=== PATIENT | female | born 1960 | race African-American/Black ===

== ENCOUNTER 2019-04-20 18:43 | Emergency (ER) | payer SELFPAY ==
[~2019-04-20] VITALS: Ht 157.5 cm; Wt 71.0 kg
[2019-04-21 00:45] VITALS: BP 145/95
[2019-04-21] MEDS: AMOXICILLIN 500 MG CAPSULE PO ONE (00:52)
== END 2019-04-21 00:54 | disposition home or self-care (01) ==
LOC: ER 18:43
DX: H66.92 Otitis media, unspecified, left ear (principal); E11.9 Type 2 diabetes mellitus without complications; I10 Essential (primary) hypertension; F17.200 Nicotine dependence, unspecified, uncomplicated; Z90.49 Acquired absence of other specified parts of digestive tract; Z59.0 Homelessness
CPT/HCPCS: 99283

== ENCOUNTER 2019-06-30 16:05 | Inpatient (IN) | payer MEDICAID, OTHER ==
[~2019-06-30] VITALS: Ht 157.5 cm; Wt 74.4 kg
[2019-06-30] MEDS ORDERED: ACETAMINOPHEN 325MG TABLET PO STA (16:38)
[2019-06-30] MEDS ORDERED: SODIUM CHLORIDE 0.9% 1000ML BAG (SEPSIS BOLUS) IV ONE (16:45)
[2019-06-30 17:03] LABS: CHLORIDE 97 mEq/L (98-107)
[2019-06-30 17:04] LABS: HEMATOCRIT. 34.5 % (36.0-48.0); HEMOGLOBIN. 11.6 g/dL (12.0-16.0); MEAN CORPUSCULAR VOLUME 95.5 fL (81.0-99.0); PLATELET 134 x1000/uL (130-400); RED BLOOD CELL COUNT 3.61 mill/uL (4.2-5.4); RED CELL DISTRIBUTION WIDTH 20.4 % (11.6-14.6)
[2019-06-30 17:08] LABS: ETHANOL BLOOD < 10 mg/dL
[2019-06-30] MEDS ORDERED: LORAZEPAM 2MG/ML CPJ IV ONE (17:30)
[2019-06-30 17:42] LABS: PLATELET ESTIMATE NORMAL
[2019-06-30] MEDS ORDERED: PIPERACILLIN/TAZ 3.375G PREMIX 50 ML IV ONE (17:45)
[2019-06-30] MEDS ORDERED: VANCOMYCIN 1 G PREMIX 200 ML IV ONE (17:45)
[2019-06-30] MEDS ORDERED: POTASSIUM CHLORIDE 20MEQ TABLET SR PO ONE (18:15)
[2019-06-30 18:28] LABS: CLARITY URINE TURBID (CLEAR); COLOR URINE ORANGE (YELLOW); KETONES URINE NEGATIVE (NEGATIVE); LEUKOCYTE ESTERASE URINE 1+ (NEGATIVE); NITRITE URINE POSITIVE (NEGATIVE); OCCULT BLOOD URINE NEGATIVE (NEGATIVE); PH URINE 5.5 (4.5-8.0); PROTEIN URINE 2+ (NEGATIVE); SPECIFIC GRAVITY URINE 1.029 (1.005-1.030)
[2019-06-30 18:41] LABS: *AMPHETAMINES SCREEN URINE NEGATIVE (NEGATIVE); *BARBITURATES SCREEN URINE NEGATIVE (NEGATIVE); *BENZODIAZEPINES SCREEN URINE NEGATIVE (NEGATIVE); *COCAINE SCREEN URINE NEGATIVE (NEGATIVE)
[2019-06-30 18:42] LABS: CANNABINOID URINE SCREEN NEGATIVE (NEGATIVE); METHADONE URINE SCREEN NEGATIVE (NEGATIVE); OPIATES URINE SCREEN NEGATIVE (NEGATIVE); PHENCYCLIDINE URINE SCREEN NEGATIVE (NEGATIVE)
[2019-06-30 21:00] VITALS: BP 127/63
[2019-06-30 22:00] VITALS: BP 127/63
[2019-06-30] MEDS ORDERED: DEXTROSE 50% WATER 50ML SYRINGE IV PRN (23:15)
[2019-07-01] VITALS (11 sets, daily range): BP systolic 93–144; BP diastolic 55–75
[2019-07-01] MEDS: BLOOD SUGAR DIAGNOSTIC STRIP TEST SCH ×4 (06:38→21:00)
[2019-07-01] MEDS ORDERED: INFLUENZA VIRUS VACCINE(AFLURIA) 0.5ML SYR IM ONE (08:00)
[2019-07-01] MEDS ORDERED: ACETAMINOPHEN 325MG TABLET PO PRN (08:00)
[2019-07-01] MEDS ORDERED: METFORMIN HCL 500MG TABLET PO SCH (08:00)
[2019-07-01] MEDS ORDERED: PNEUMOCOCCAL 23-VAL P-SAC VAC 0.5 ML IM ONE (08:00)
[2019-07-01 08:10] LABS: BASOPHILS % 0.5 % (0.0-2.0); EOSINOPHILS % 0.1 % (0.0-5.0); HEMATOCRIT. 30.8 % (36.0-48.0); HEMOGLOBIN. 10.4 g/dL (12.0-16.0); LYMPHOCYTES % 9.3 % (20.0-50.0); MEAN CORPUSCULAR HEMOGLOBIN 32.1 pg (28.0-32.0); MEAN PLATELET VOLUME 9.4 fl (7.4-10.4); MONOCYTES % 8.8 % (2.0-8.0); NEUTROPHILS % 81.3 % (40.0-76.0); PLATELET 97 x1000/uL (130-400); RED BLOOD CELL COUNT 3.24 mill/uL (4.2-5.4); RED CELL DISTRIBUTION WIDTH 20.3 % (11.6-14.6)
[2019-07-01] MEDS: INSULIN LISPRO 100 UNITS/ML SUBCUT SCH ×4 (08:23→22:10)
[2019-07-01 08:30] LABS: CHLORIDE 103 mEq/L (98-107)
[2019-07-01] MEDS: ASPIRIN 325MG TABLET PO SCH (08:52)
[2019-07-01] MEDS: HYDROCODONE/ACETAMINOPHEN 5/325MG TABLET PO PRN ×2 (08:52→17:12)
[2019-07-01] MEDS: LISINOPRIL 20MG TABLET PO SCH (08:55)
[2019-07-01] MEDS ORDERED: POTASSIUM-SODIUM PHOSPHATE POWDER PACKET PO ONE (09:30)
[2019-07-01] MEDS ORDERED: POTASSIUM CHLORIDE 20MEQ TABLET SR PO NR (09:35)
[2019-07-01] MEDS ORDERED: DILTIAZEM HCL 60MG TABLET PO NR (10:00)
[2019-07-01] MEDS: METRONIDAZOLE 500 MG PREMIX 100 ML IV SCH ×2 (10:23→17:20)
[2019-07-01] MEDS: LEVOFLOXACIN 500MG PREMIX 100 ML IV SCH (10:23)
[2019-07-01] MEDS ORDERED: ONDANSETRON HCL 4MG/2ML INJ IV PRN (16:45)
[2019-07-01] MEDS: DILTIAZEM HCL 60MG TABLET PO SCH ×3 (17:11→21:59)
[2019-07-01 20:24] LABS: HEPATITIS B SURFACE ANTIGEN NEGATIVE
[2019-07-01 20:54] LABS: HEPATITIS A AB IGM NEGATIVE (NEGATIVE)
[2019-07-01] MEDS ORDERED: ATORVASTATIN CALCIUM 40MG TABLET PO SCH (21:00)
[2019-07-01 21:57] LABS: HEMATOCRIT. 30.8 % (36.0-48.0); HEMOGLOBIN. 10.6 g/dL (12.0-16.0); MEAN CORPUSCULAR HEMOGLOBIN 32.6 pg (28.0-32.0); MEAN CORPUSCULAR VOLUME 95.4 fL (81.0-99.0); MEAN PLATELET VOLUME 8.8 fl (7.4-10.4); PLATELET 84 x1000/uL (130-400); RED BLOOD CELL COUNT 3.23 mill/uL (4.2-5.4)
[2019-07-01] MEDS: INSULIN GLARGINE UD 100 UNITS/ML SYR SUBCUT SCH (22:12)
[2019-07-01 23:29] LABS: PLATELET ESTIMATE SLIGHTLY DECREASED
[2019-07-02] VITALS (13 sets, daily range): BP systolic 94–137; BP diastolic 49–92
[2019-07-02] MEDS: METRONIDAZOLE 500 MG PREMIX 100 ML IV SCH ×3 (01:42→17:11)
[2019-07-02] MEDS: DILTIAZEM HCL 60MG TABLET PO SCH ×3 (05:31→22:00)
[2019-07-02 07:34] LABS: CHLORIDE 102 mEq/L (98-107)
[2019-07-02] MEDS: BLOOD SUGAR DIAGNOSTIC STRIP TEST SCH ×4 (07:36→21:00)
[2019-07-02 07:41] LABS: HEMATOCRIT. 31.7 % (36.0-48.0); HEMOGLOBIN. 10.9 g/dL (12.0-16.0); MEAN CORPUSCULAR HEMOGLOBIN 32.8 pg (28.0-32.0); MEAN CORPUSCULAR VOLUME 95.5 fL (81.0-99.0); MEAN PLATELET VOLUME 8.9 fl (7.4-10.4); PLATELET 89 x1000/uL (130-400); RED BLOOD CELL COUNT 3.32 mill/uL (4.2-5.4); RED CELL DISTRIBUTION WIDTH 20.7 % (11.6-14.6)
[2019-07-02] MEDS: INSULIN LISPRO 100 UNITS/ML SUBCUT SCH ×4 (08:00→21:00)
[2019-07-02] MEDS: LEVOFLOXACIN 500MG PREMIX 100 ML IV SCH (08:48)
[2019-07-02] MEDS: ASPIRIN 325MG TABLET PO SCH (08:48)
[2019-07-02] MEDS: LISINOPRIL 20MG TABLET PO SCH (08:49)
[2019-07-02] MEDS ORDERED: POTASSIUM CHLORIDE 20MEQ/PACKET PO NR (10:00)
[2019-07-02] MEDS: INSULIN GLARGINE UD 100 UNITS/ML SYR SUBCUT SCH ×2 (10:18→22:00)
[2019-07-02] MEDS: MAGNESIUM OXIDE 400MG TABLET PO SCH ×2 (10:21→17:11)
[2019-07-02] MEDS ORDERED: MAGNESIUM 2 G PREMIX 50 ML IV NR (11:00)
[2019-07-02] MEDS: HYDROCODONE/ACETAMINOPHEN 5/325MG TABLET PO PRN (17:13)
[2019-07-02] MEDS: CEFTRIAXONE 2 G in DEXTROSE 5% WATER 50 ML IV SCH (18:24)
[2019-07-03] VITALS (20 sets, daily range): BP systolic 101–137; BP diastolic 56–80
[2019-07-03] MEDS: METRONIDAZOLE 500 MG PREMIX 100 ML IV SCH ×3 (02:14→17:09)
[2019-07-03 05:40] LABS: PLATELET ESTIMATE DECREASED
[2019-07-03] MEDS: DILTIAZEM HCL 60MG TABLET PO SCH (05:45)
[2019-07-03 06:38] LABS: HEMATOCRIT. 31.3 % (36.0-48.0); HEMOGLOBIN. 10.5 g/dL (12.0-16.0); MEAN CORPUSCULAR HEMOGLOBIN 32.1 pg (28.0-32.0); MEAN CORPUSCULAR VOLUME 95.4 fL (81.0-99.0); MEAN PLATELET VOLUME 9.1 fl (7.4-10.4); PLATELET 98 x1000/uL (130-400); RED BLOOD CELL COUNT 3.28 mill/uL (4.2-5.4); RED CELL DISTRIBUTION WIDTH 21.5 % (11.6-14.6)
[2019-07-03] MEDS: BLOOD SUGAR DIAGNOSTIC STRIP TEST SCH ×4 (07:30→21:00)
[2019-07-03 07:49] LABS: CHLORIDE 103 mEq/L (98-107)
[2019-07-03] MEDS: INSULIN LISPRO 100 UNITS/ML SUBCUT SCH ×4 (08:00→21:00)
[2019-07-03] MEDS ORDERED: INFLUENZA VIRUS VACCINE(AFLURIA) 0.5ML SYR IM ONE (08:30)
[2019-07-03] MEDS ORDERED: PNEUMOCOCCAL 23-VAL P-SAC VAC 0.5 ML IM ONE (08:30)
[2019-07-03] MEDS: ASPIRIN 325MG TABLET PO SCH (09:00)
[2019-07-03] MEDS: MAGNESIUM OXIDE 400MG TABLET PO SCH ×2 (09:00→17:08)
[2019-07-03] MEDS: LISINOPRIL 20MG TABLET PO SCH (09:00)
[2019-07-03 09:11] LABS: PLATELET ESTIMATE SLIGHTLY DECREASED
[2019-07-03] MEDS: INSULIN GLARGINE UD 100 UNITS/ML SYR SUBCUT SCH ×2 (10:00→22:35)
[2019-07-03] MEDS: LEVOFLOXACIN 500MG PREMIX 100 ML IV SCH (10:34)
[2019-07-03 12:43] LABS: INR 1.7; PROTHROMBIN TIME 17.3 sec (9.6-11.0)
[2019-07-03] MEDS: DILTIAZEM HCL 30MG TABLET PO SCH ×3 (13:04→23:50)
[2019-07-03] MEDS ORDERED: DILT120C88 MT (14:29)
[2019-07-03] MEDS ORDERED: LEVO500T2 MT (14:29)
[2019-07-03] MEDS ORDERED: METR500T PO (14:29)
[2019-07-03] MEDS: PHYTONADIONE 10MG/ML AMP SUBCUT SCH (14:30)
[2019-07-03] MEDS: CEFTRIAXONE 2 G in DEXTROSE 5% WATER 50 ML IV SCH (17:09)
[2019-07-04] VITALS (16 sets, daily range): BP systolic 90–138; BP diastolic 45–93
[2019-07-04] MEDS: METRONIDAZOLE 500 MG PREMIX 100 ML IV SCH ×3 (02:00→17:36)
[2019-07-04] MEDS: DILTIAZEM HCL 30MG TABLET PO SCH ×4 (06:00→21:21)
[2019-07-04] MEDS: BLOOD SUGAR DIAGNOSTIC STRIP TEST SCH ×4 (07:30→21:12)
[2019-07-04] MEDS: INSULIN LISPRO 100 UNITS/ML SUBCUT SCH ×4 (08:00→21:16)
[2019-07-04] MEDS: MAGNESIUM OXIDE 400MG TABLET PO SCH ×2 (08:26→16:54)
[2019-07-04] MEDS: LISINOPRIL 5MG TABLET PO SCH (08:26)
[2019-07-04] MEDS: PHYTONADIONE 10MG/ML AMP SUBCUT SCH (09:00)
[2019-07-04] MEDS: INSULIN GLARGINE UD 100 UNITS/ML SYR SUBCUT SCH ×2 (09:33→21:16)
[2019-07-04 11:57] LABS: HEMATOCRIT. 30.3 % (36.0-48.0); HEMOGLOBIN. 10.3 g/dL (12.0-16.0); MEAN CORPUSCULAR HEMOGLOBIN 32.4 pg (28.0-32.0); MEAN CORPUSCULAR VOLUME 95.6 fL (81.0-99.0); MEAN PLATELET VOLUME 9.4 fl (7.4-10.4); PLATELET 98 x1000/uL (130-400); RED BLOOD CELL COUNT 3.17 mill/uL (4.2-5.4); RED CELL DISTRIBUTION WIDTH 22.3 % (11.6-14.6)
[2019-07-04 12:00] LABS: CHLORIDE 104 mEq/L (98-107)
[2019-07-04 12:00] LABS: INR 1.5
[2019-07-04] MEDS ORDERED: SODIUM CHLORIDE 0.9% 10ML VIAL ONE (12:20)
[2019-07-04] MEDS ORDERED: PROPOFOL 200MG/20ML VIAL IV ONE (12:20)
[2019-07-04] MEDS ORDERED: ESMOLOL HCL 10MG/ML 10ML VIAL IV ONE (12:20)
[2019-07-04 13:21] LABS: PLATELET ESTIMATE SLIGHTLY DECREASED
[2019-07-04] MEDS ORDERED: FENTANYL CITRATE/PF 50MCG/ML 2ML VIAL ONE (13:49)
[2019-07-04] MEDS ORDERED: MIDAZOLAM HCL 2 MG/2 ML VIAL ONE (13:50)
[2019-07-04] MEDS ORDERED: ALBUTEROL 90MCG/PUFF 17GM INHALER INH ONE (13:52)
[2019-07-04] MEDS ORDERED: IPRATROPIUM/ALBUTEROL 0.5-3(2.5)MG/3ML NEB HHN NR (14:15)
[2019-07-04] MEDS ORDERED: IPRATROPIUM/ALBUTEROL 0.5-3(2.5)MG/3ML NEB ONE (14:17)
[2019-07-04] MEDS: HYDROCODONE/ACETAMINOPHEN 5/325MG TABLET PO PRN (16:55)
[2019-07-04] MEDS: CEFTRIAXONE 2 G in DEXTROSE 5% WATER 50 ML IV SCH (16:56)
[2019-07-04] MEDS: PROPRANOLOL HCL 10MG TABLET PO SCH (17:40)
[2019-07-04] MEDS: MORPHINE SULFATE 2 MG/ML CPJ (NOT FOR IM USE) IV PRN (20:19)
[2019-07-05] VITALS (12 sets, daily range): BP systolic 104–136; BP diastolic 59–83
[2019-07-05] MEDS: MORPHINE SULFATE 2 MG/ML CPJ (NOT FOR IM USE) IV PRN ×5 (00:15→22:16)
[2019-07-05] MEDS: METRONIDAZOLE 500 MG PREMIX 100 ML IV SCH ×2 (01:55→10:05)
[2019-07-05] MEDS: PROPRANOLOL HCL 10MG TABLET PO SCH ×2 (05:47→18:06)
[2019-07-05] MEDS: BLOOD SUGAR DIAGNOSTIC STRIP TEST SCH ×4 (07:30→21:46)
[2019-07-05] MEDS: INSULIN LISPRO 100 UNITS/ML SUBCUT SCH ×4 (09:40→21:45)
[2019-07-05] MEDS: DILTIAZEM HCL 30MG TABLET PO SCH (10:01)
[2019-07-05] MEDS: MAGNESIUM OXIDE 400MG TABLET PO SCH ×2 (10:02→16:49)
[2019-07-05] MEDS: PHYTONADIONE 10MG/ML AMP SUBCUT SCH (10:02)
[2019-07-05] MEDS ORDERED: ALBU18HF2 IH (11:08)
[2019-07-05] MEDS ORDERED: FLUT1DIS3 INH (11:08)
[2019-07-05] MEDS ORDERED: GUAI600T26 MT (11:08)
[2019-07-05] MEDS ORDERED: IPRATROPIUM/ALBUTEROL 0.5-3(2.5)MG/3ML NEB HHN PRN (11:15)
[2019-07-05] MEDS: INSULIN GLARGINE UD 100 UNITS/ML SYR SUBCUT SCH ×2 (11:39→21:46)
[2019-07-05] MEDS: LISINOPRIL 5MG TABLET PO SCH (11:40)
[2019-07-05 11:49] LABS: BG BASE EXCESS 4.1 mmol/L (-2.0-2.0); BG CARBOXYHEMOGLOBIN 1.6 % (0.5-1.5); BG DEOXYHEMOGLOBIN 10.2 % (0.0-5.0); BG FRACTION INSPIRED OXYGEN 21; BG METHEMOGLOBIN 0.3 % (0.0-1.5); BG OXYGEN SATURATION 89.6 % (92.0-98.5); BG OXYHEMOGLOBIN 87.9 % (94.0-97.0); BG PCO2 50.4 mmHg (35.0-45.0); BG PH 7.392 (7.350-7.450); BG PO2 59.4 mmHg (75.0-100.0); BG SAMPLE SITE RIGHT BRACHIAL; BG VENT MODE ROOM AIR
[2019-07-05] MEDS: GUAIFENESIN 600MG ER TABLET PO SCH ×2 (14:31→21:40)
[2019-07-05] MEDS: IPRATROPIUM/ALBUTEROL 0.5-3(2.5)MG/3ML NEB HHN SCH ×2 (17:34→20:01)
[2019-07-05] MEDS: BUDESONIDE 0.5MG/2ML NEB HHN SCH ×2 (17:35→20:00)
[2019-07-05] MEDS: CEFTRIAXONE 2 G in DEXTROSE 5% WATER 50 ML IV SCH (18:04)
[2019-07-05] MEDS: METRONIDAZOLE 500MG TABLET PO SCH (18:26)
[2019-07-05] MEDS ORDERED: GUAIFENESIN 600MG ER TABLET PO SCH (21:00)
[2019-07-05] MEDS ORDERED: LORAZEPAM 1MG TABLET PO PRN (21:15)
[2019-07-05] MEDS: VENLAFAXINE HCL 37.5MG TABLET PO SCH (21:40)
[2019-07-06] VITALS (9 sets, daily range): BP systolic 93–140; BP diastolic 41–87
[2019-07-06] MEDS: METRONIDAZOLE 500MG TABLET PO SCH ×2 (02:43→11:00)
[2019-07-06] MEDS: MORPHINE SULFATE 2 MG/ML CPJ (NOT FOR IM USE) IV PRN ×2 (03:17→09:24)
[2019-07-06] MEDS: IPRATROPIUM/ALBUTEROL 0.5-3(2.5)MG/3ML NEB HHN SCH ×2 (04:23→08:10)
[2019-07-06] MEDS: PROPRANOLOL HCL 10MG TABLET PO SCH (06:03)
[2019-07-06] MEDS: BLOOD SUGAR DIAGNOSTIC STRIP TEST SCH ×2 (07:30→13:02)
[2019-07-06] MEDS: INSULIN LISPRO 100 UNITS/ML SUBCUT SCH (08:00)
[2019-07-06] MEDS: BUDESONIDE 0.5MG/2ML NEB HHN SCH (08:10)
[2019-07-06] MEDS: LISINOPRIL 5MG TABLET PO SCH (09:21)
[2019-07-06] MEDS: MAGNESIUM OXIDE 400MG TABLET PO SCH (09:21)
[2019-07-06] MEDS: VENLAFAXINE HCL 37.5MG TABLET PO SCH (09:21)
[2019-07-06] MEDS: GUAIFENESIN 600MG ER TABLET PO SCH (09:37)
[2019-07-06] MEDS: INSULIN GLARGINE UD 100 UNITS/ML SYR SUBCUT SCH (11:01)
[2019-07-06] MEDS ORDERED: LACTOBACILLUS GG CAPSULE PO SCH (11:30)
[2019-07-06] MEDS ORDERED: METHYLPREDNISOLONE SOD SUCC 40 MG/ML VIAL IV NR (12:45)
[2019-07-06] MEDS ORDERED: BENZONATATE 100MG CAPSULE PO PRN (12:45)
[2019-07-06] MEDS ORDERED: FLUTICASONE PROPIONATE 50MCG/SPRAY BOTTLE BOTHNSTRLS SCH (14:00)
== END 2019-07-06 15:00 | disposition home or self-care (01) | DRG 720 ==
LOC: EDBEDREQ 16:41 → ER 16:52 → 5EST 18:05 → EDBEDREQTM 18:10 → EDBEDREQ 18:10 → ENRESERV 19:12
PROVIDERS: ADMIT Internal Medicine; ATTEND Internal Medicine
PROC: 30233K1 Transfusion of Nonautologous Frozen Plasma into Peripheral Vein, Percutaneous Approach (ICD-10-PCS; principal; 2019-07-04)
PROC: 0DJ08ZZ Inspection of Upper Intestinal Tract, Via Natural or Artificial Opening Endoscopic (ICD-10-PCS; 2019-07-06)
DX: A41.51 Sepsis due to Escherichia coli [E. coli] (principal); E43 Unspecified severe protein-calorie malnutrition; K92.0 Hematemesis; D68.9 Coagulation defect, unspecified; E87.2 Acidosis; E87.8 Other disorders of electrolyte and fluid balance, not elsewhere classified; E87.1 Hypo-osmolality and hyponatremia; E83.42 Hypomagnesemia; K76.6 Portal hypertension; K57.32 Diverticulitis of large intestine without perforation or abscess without bleeding; K74.60 Unspecified cirrhosis of liver; I47.1 Supraventricular tachycardia; N39.0 Urinary tract infection, site not specified; E87.6 Hypokalemia; D64.9 Anemia, unspecified; E11.9 Type 2 diabetes mellitus without complications; E78.5 Hyperlipidemia, unspecified; I10 Essential (primary) hypertension; F17.210 Nicotine dependence, cigarettes, uncomplicated; F32.9 Major depressive disorder, single episode, unspecified; G40.909 Epilepsy, unspecified, not intractable, without status epilepticus; J06.9 Acute upper respiratory infection, unspecified; J44.9 Chronic obstructive pulmonary disease, unspecified; R09.02 Hypoxemia; G47.00 Insomnia, unspecified; Z82.3 Family history of stroke; B19.20 Unspecified viral hepatitis C without hepatic coma; Z82.49 Family history of ischemic heart disease and other diseases of the circulatory system; Z86.73 Personal history of transient ischemic attack (TIA), and cerebral infarction without residual deficits; Z90.49 Acquired absence of other specified parts of digestive tract; Z68.30 Body mass index [BMI] 30.0-30.9, adult; Z79.84 Long term (current) use of oral hypoglycemic drugs
CPT/HCPCS: 36415; 36600; 70551; 71045; 74176; 80048; 80076; 80305; 80320; 81003; 82270; 82375; 82805; 82962; 83036; 83605; 83735; 84443; 84484; 86705; 86709; 86803; 86850; 86900; 86927; 87077; 87186; 87340; 87493; 90686; 90732; 93005; 93306; 93880; 94002; 94640; 96365; 97116; 97162; 99291; J0696; J1815; J1956; J2060; J2250; J2270; J2405; J2543; J2704; J2920; J3010; J3370; J3430; J3475; J3490; J7030; J7040; J7060; J7620; J7626; P9017; G0480

== ENCOUNTER 2020-04-04 06:02 | Inpatient (IN) | payer MEDICAID, OTHER ==
[~2020-04-04] VITALS: Ht 157.5 cm; Wt 65.8 kg
[~2020-04-04 06:02] MED LIST: ALBU18HF2 IH; FLUT1DIS3 INH; GUAI600T26 MT; LEVO500T2 MT; METR500T PO
[2020-04-04] MEDS ORDERED: KETOROLAC 30MG/ML VIAL IV STA (06:50)
[2020-04-04] MEDS ORDERED: SODIUM CHLORIDE 0.9% 1,000 ML IV ONE (06:50)
[2020-04-04 07:52] LABS: BASOPHILS % 0.7 % (0.0-2.0); EOSINOPHILS % 0.1 % (0.0-5.0); HEMATOCRIT. 35.7 % (36.0-48.0); LYMPHOCYTES % 7.8 % (20.0-50.0); MEAN CORPUSCULAR HEMOGLOBIN 34.5 pg (28.0-32.0); MEAN CORPUSCULAR VOLUME 102.2 fL (81.0-99.0); MEAN PLATELET VOLUME 9.1 fl (7.4-10.4); MONOCYTES % 8.1 % (2.0-8.0); NEUTROPHILS % 83.3 % (40.0-76.0); PLATELET 62 x1000/uL (130-400); RED BLOOD CELL COUNT 3.49 mill/uL (4.2-5.4); RED CELL DISTRIBUTION WIDTH 16.5 % (11.6-14.6)
[2020-04-04 07:57] LABS: CLARITY URINE TURBID (CLEAR); COLOR URINE ORANGE (YELLOW); KETONES URINE NEGATIVE (NEGATIVE); LEUKOCYTE ESTERASE URINE 3+ (NEGATIVE); NITRITE URINE NEGATIVE (NEGATIVE); OCCULT BLOOD URINE 1+ (NEGATIVE); PROTEIN URINE 1+ (NEGATIVE); SPECIFIC GRAVITY URINE 1.012 (1.005-1.030); UROBILINOGEN URINE >=8.0 E.U./dL (0.2-1.0)
[2020-04-04 07:59] LABS: CHLORIDE 100 mEq/L (98-107)
[2020-04-04] MEDS ORDERED: PIPERACILLIN/TAZ 3.375G PREMIX 50 ML IV ONE (08:15)
[2020-04-04] MEDS ORDERED: VANCOMYCIN 1 G PREMIX 200 ML IV ONE (08:15)
[2020-04-04] MEDS ORDERED: SODIUM CHLORIDE 0.9% 1000ML BAG (SEPSIS BOLUS) IV ONE (08:15)
[2020-04-04 09:09] LABS: C REACTIVE PROTEIN QUANT 5.4 mg/L (0.0-3.0)
[2020-04-04 09:15] LABS: D-DIMER 4.25 mg/L FEU (<0.50)
[2020-04-04 09:18] LABS: PROTHROMBIN TIME > 100.0 sec (9.6-11.0)
[2020-04-04 09:19] LABS: FIBRINOGEN < 50 mg/dL (200-400); INR > 10.0
[2020-04-04 09:58] LABS: BG BASE EXCESS -7.7 mmol/L (-2.0-2.0); BG CARBOXYHEMOGLOBIN 1.5 % (0.5-1.5); BG DEOXYHEMOGLOBIN 8.9 % (0.0-5.0); BG FRACTION INSPIRED OXYGEN 21; BG HCO3 ACT 17.1 mmol/L (22.0-26.0); BG METHEMOGLOBIN 1.5 % (0.0-1.5); BG OXYGEN SATURATION 90.8 % (92.0-98.5); BG OXYHEMOGLOBIN 88.1 % (94.0-97.0); BG PCO2 32.1 mmHg (35.0-45.0); BG PH 7.344 (7.350-7.450); BG PO2 72.3 mmHg (75.0-100.0); BG SAMPLE SITE RIGHT RADIAL; BG TOTAL HEMOGLOBIN 10.7 g/dL (12.0-18.0); BG VENT MODE ROOM AIR
[2020-04-04] MEDS: INSULIN LISPRO 100 UNITS/ML SUBCUT SCH ×3 (13:20→20:37)
[2020-04-04] MEDS ORDERED: LEVOFLOXACIN 500MG PREMIX 100 ML IV SCH (13:30)
[2020-04-04] MEDS ORDERED: ENOXAPARIN 40MG/0.4ML SYR SUBCUT SCH (13:30)
[2020-04-04] MEDS ORDERED: CLONIDINE 0.1MG TABLET PO PRN (13:30)
[2020-04-04] MEDS ORDERED: ONDANSETRON HCL 4MG/2ML INJ IV PRN (13:30)
[2020-04-04] MEDS ORDERED: NITROGLYCERIN 0.4MG TABLET SL SL PRN (13:30)
[2020-04-04] MEDS ORDERED: DEXTROSE 50% WATER 50ML SYRINGE IV PRN (13:30)
[2020-04-04] MEDS ORDERED: ZOLPIDEM TARTRATE 5MG TABLET PO PRN (13:30)
[2020-04-04] MEDS ORDERED: DOCUSATE SODIUM 100MG CAPSULE PO PRN (13:30)
[2020-04-04] MEDS ORDERED: GUAIFENESIN 200MG/10ML SUGAR FREE UDC PO PRN (13:30)
[2020-04-04] MEDS ORDERED: IPRATROPIUM/ALBUTEROL 0.5-3(2.5)MG/3ML NEB ORI PRN (13:30)
[2020-04-04] MEDS ORDERED: MAGNESIUM/ALUMINUM HYDROXIDE/SIMETHICONE 30ML UDC PO PRN (13:30)
[2020-04-04] MEDS: SODIUM CHLORIDE 0.9% 1,000 ML IV SCH (13:45)
[2020-04-04] MEDS: KETOROLAC 15MG/ML VIAL IV PRN (13:53)
[2020-04-04 14:38] LABS: TOTAL IRON BINDING CAPACITY 70 ug/dL (250-450)
[2020-04-04 14:59] LABS: *BARBITURATES SCREEN URINE NEGATIVE (NEGATIVE)
[2020-04-04 15:00] LABS: *AMPHETAMINES SCREEN URINE NEGATIVE (NEGATIVE); *BENZODIAZEPINES SCREEN URINE NEGATIVE (NEGATIVE); *COCAINE SCREEN URINE NEGATIVE (NEGATIVE); METHADONE URINE SCREEN NEGATIVE (NEGATIVE); OPIATES URINE SCREEN NEGATIVE (NEGATIVE)
[2020-04-04] MEDS ORDERED: CEFTRIAXONE 1 G PREMIX 50 ML IV SCH (15:00)
[2020-04-04 15:01] LABS: CANNABINOID URINE SCREEN NEGATIVE (NEGATIVE); PHENCYCLIDINE URINE SCREEN NEGATIVE (NEGATIVE)
[2020-04-04 15:01] LABS: VITAMIN B12 SERUM > 2000.0 pg/mL (211-911)
[2020-04-04 15:33] LABS: CREATINE KINASE MB FRACTION 1.9 ng/mL (0.5-3.6)
[2020-04-04 16:30] VITALS: BP 144/69
[2020-04-04] MEDS ORDERED: METHYLPREDNISOLONE SOD SUCC 40 MG/ML VIAL IV SCH (17:00)
[2020-04-04] MEDS ORDERED: PHYTONADIONE 10MG/ML AMP SUBCUT NR (17:15)
[2020-04-04] MEDS: BLOOD SUGAR DIAGNOSTIC STRIP TEST SCH ×2 (17:50→20:37)
[2020-04-04] MEDS ORDERED: ALBUTEROL 6.7GM HFA INHALER ORI SCH (18:00)
[2020-04-04] MEDS: CEFTRIAXONE 1 G PREMIX 50 ML IV SCH (18:18)
[2020-04-04 20:00] VITALS: BP 148/73
[2020-04-04] MEDS: ASCORBIC ACID 500 MG TABLET PO SCH (20:37)
[2020-04-04 21:45] VITALS: BP 143/71
[2020-04-04] MEDS: FAMOTIDINE 20MG TABLET PO SCH (22:09)
[2020-04-05] VITALS: BP 117/59
[2020-04-05 00:15] LABS: CREATINE KINASE MB FRACTION 1.7 ng/mL (0.5-3.6)
[2020-04-05 04:00] VITALS: BP 120/62
[2020-04-05] MEDS: BLOOD SUGAR DIAGNOSTIC STRIP TEST SCH ×4 (06:20→20:45)
[2020-04-05] MEDS: INSULIN LISPRO 100 UNITS/ML SUBCUT SCH ×4 (06:44→21:14)
[2020-04-05] MEDS: SODIUM CHLORIDE 0.9% 1,000 ML IV SCH ×3 (06:44→17:40)
[2020-04-05 08:00] VITALS: BP 123/54
[2020-04-05] MEDS ORDERED: IPRATROPIUM/ALBUTEROL 0.5-3(2.5)MG/3ML NEB HHN PRN (08:45)
[2020-04-05] MEDS: ASCORBIC ACID 500 MG TABLET PO SCH ×2 (10:00→21:08)
[2020-04-05] MEDS: ZINC SULFATE 220 MG ( 50 ) CAPSULE PO SCH (10:00)
[2020-04-05] MEDS: FAMOTIDINE 20MG TABLET PO SCH ×2 (10:00→21:08)
[2020-04-05] MEDS: PREDNISONE 20MG TABLET PO SCH (10:03)
[2020-04-05] MEDS: KETOROLAC 15MG/ML VIAL IV PRN ×2 (10:24→18:10)
[2020-04-05] MEDS: ASPIRIN 325MG EC TABLET PO SCH (11:32)
[2020-04-05 12:00] VITALS: BP 114/57
[2020-04-05 12:48] LABS: INR 2.7; PROTHROMBIN TIME 27.1 sec (9.6-11.0)
[2020-04-05] MEDS: LEVOFLOXACIN 500MG PREMIX 100 ML IV SCH (13:41)
[2020-04-05 16:00] VITALS: BP 116/64
[2020-04-05] MEDS: CEFTRIAXONE 1 G PREMIX 50 ML IV SCH (17:26)
[2020-04-05 20:00] VITALS: BP 125/69
[2020-04-05] MEDS: IPRATROPIUM/ALBUTEROL 0.5-3(2.5)MG/3ML NEB HHN SCH (22:45)
[2020-04-06] VITALS: BP 119/69
[2020-04-06] MEDS: IPRATROPIUM/ALBUTEROL 0.5-3(2.5)MG/3ML NEB HHN SCH ×3 (03:05→14:50)
[2020-04-06 04:00] VITALS: BP 135/63
[2020-04-06] MEDS: SODIUM CHLORIDE 0.9% 1,000 ML IV SCH ×2 (04:17→15:20)
[2020-04-06] MEDS: BLOOD SUGAR DIAGNOSTIC STRIP TEST SCH ×4 (05:54→20:58)
[2020-04-06] MEDS: INSULIN LISPRO 100 UNITS/ML SUBCUT SCH ×4 (06:13→21:11)
[2020-04-06 08:00] VITALS: BP 141/62
[2020-04-06] MEDS: ASPIRIN 325MG EC TABLET PO SCH (09:28)
[2020-04-06] MEDS: PREDNISONE 20MG TABLET PO SCH (09:28)
[2020-04-06] MEDS: ASCORBIC ACID 500 MG TABLET PO SCH ×2 (09:28→20:24)
[2020-04-06] MEDS: ZINC SULFATE 220 MG ( 50 ) CAPSULE PO SCH (09:28)
[2020-04-06] MEDS: FAMOTIDINE 20MG TABLET PO SCH ×2 (09:28→20:24)
[2020-04-06] MEDS: LEVOFLOXACIN 500MG PREMIX 100 ML IV SCH (12:12)
[2020-04-06] MEDS: ACETAMINOPHEN 325MG TABLET PO PRN ×2 (14:09→18:43)
[2020-04-06 16:00] VITALS: BP 145/53
[2020-04-06] MEDS: KETOROLAC 15MG/ML VIAL IV PRN ×2 (16:47→22:48)
[2020-04-06] MEDS: CEFTRIAXONE 1 G PREMIX 50 ML IV SCH (17:42)
[2020-04-06 20:00] VITALS: BP 138/58
[2020-04-07 00:02] VITALS: BP 128/66
[2020-04-07 04:00] VITALS: BP 138/60
[2020-04-07] MEDS: BLOOD SUGAR DIAGNOSTIC STRIP TEST SCH ×4 (06:13→21:00)
[2020-04-07] MEDS: INSULIN LISPRO 100 UNITS/ML SUBCUT SCH ×4 (06:29→22:29)
[2020-04-07 08:00] VITALS: BP 122/50
[2020-04-07] MEDS: ASPIRIN 325MG EC TABLET PO SCH (08:51)
[2020-04-07] MEDS: FAMOTIDINE 20MG TABLET PO SCH ×3 (08:51→22:28)
[2020-04-07] MEDS: ASCORBIC ACID 500 MG TABLET PO SCH ×3 (08:51→22:28)
[2020-04-07] MEDS: ZINC SULFATE 220 MG ( 50 ) CAPSULE PO SCH (08:51)
[2020-04-07] MEDS: IPRATROPIUM/ALBUTEROL 0.5-3(2.5)MG/3ML NEB HHN SCH ×3 (09:21→19:43)
[2020-04-07 12:00] VITALS: BP 149/100
[2020-04-07] MEDS: LEVOFLOXACIN 500MG PREMIX 100 ML IV SCH (12:37)
[2020-04-07] MEDS: ACETAMINOPHEN 325MG TABLET PO PRN (13:01)
[2020-04-07 16:00] VITALS: BP 133/53
[2020-04-07] MEDS: CEFTRIAXONE 1 G PREMIX 50 ML IV SCH (18:23)
[2020-04-07 20:00] VITALS: BP 136/72
[2020-04-07] MEDS: SODIUM CHLORIDE 0.9% 1,000 ML IV SCH ×2 (21:19→22:28)
[2020-04-08] VITALS: BP 130/55
[2020-04-08] MEDS: IPRATROPIUM/ALBUTEROL 0.5-3(2.5)MG/3ML NEB HHN SCH ×4 (02:00→20:39)
[2020-04-08 04:00] VITALS: BP 164/91
[2020-04-08] MEDS: BLOOD SUGAR DIAGNOSTIC STRIP TEST SCH ×4 (06:51→21:59)
[2020-04-08] MEDS: INSULIN LISPRO 100 UNITS/ML SUBCUT SCH ×4 (06:53→22:15)
[2020-04-08 08:00] VITALS: BP 130/58
[2020-04-08] MEDS: ZINC SULFATE 220 MG ( 50 ) CAPSULE PO SCH (08:30)
[2020-04-08] MEDS: ASPIRIN 325MG EC TABLET PO SCH (08:30)
[2020-04-08] MEDS: ACETAMINOPHEN 325MG TABLET PO PRN ×4 (08:31→22:04)
[2020-04-08] MEDS: FAMOTIDINE 20MG TABLET PO SCH ×2 (08:31→21:56)
[2020-04-08] MEDS: ASCORBIC ACID 500 MG TABLET PO SCH ×2 (08:31→21:56)
[2020-04-08 12:00] VITALS: BP 110/48
[2020-04-08] MEDS: LEVOFLOXACIN 500MG PREMIX 100 ML IV SCH (13:00)
[2020-04-08 16:00] VITALS: BP 125/43
[2020-04-08] MEDS: LEVOFLOXACIN 500MG TABLET PO SCH (16:13)
[2020-04-08 20:00] VITALS: BP 130/58
[2020-04-09] VITALS: BP 110/60
[2020-04-09] MEDS: IPRATROPIUM/ALBUTEROL 0.5-3(2.5)MG/3ML NEB HHN SCH ×4 (02:08→20:40)
[2020-04-09 04:00] VITALS: BP 117/55
[2020-04-09] MEDS: ACETAMINOPHEN 325MG TABLET PO PRN ×3 (06:32→20:04)
[2020-04-09] MEDS: INSULIN LISPRO 100 UNITS/ML SUBCUT SCH ×4 (06:53→20:24)
[2020-04-09] MEDS: BLOOD SUGAR DIAGNOSTIC STRIP TEST SCH ×4 (06:54→20:24)
[2020-04-09 07:44] VITALS: BP 108/54
[2020-04-09] MEDS: ZINC SULFATE 220 MG ( 50 ) CAPSULE PO SCH (08:53)
[2020-04-09] MEDS: ASCORBIC ACID 500 MG TABLET PO SCH ×2 (08:53→20:04)
[2020-04-09] MEDS: FAMOTIDINE 20MG TABLET PO SCH ×2 (08:53→20:04)
[2020-04-09] MEDS: ASPIRIN 325MG EC TABLET PO SCH (08:56)
[2020-04-09 12:00] VITALS: BP 126/54
[2020-04-09] MEDS: LEVOFLOXACIN 500MG TABLET PO SCH (12:44)
[2020-04-09 16:00] VITALS: BP 134/61
[2020-04-09 20:00] VITALS: BP 144/69
[2020-04-10] VITALS: BP 108/50
[2020-04-10] MEDS: IPRATROPIUM/ALBUTEROL 0.5-3(2.5)MG/3ML NEB HHN SCH ×2 (02:10→08:39)
[2020-04-10 04:00] VITALS: BP 115/58
[2020-04-10 05:44] VITALS: BP 115/58
[2020-04-10] MEDS: BLOOD SUGAR DIAGNOSTIC STRIP TEST SCH (06:41)
[2020-04-10] MEDS: INSULIN LISPRO 100 UNITS/ML SUBCUT SCH (06:41)
[2020-04-10 08:00] VITALS: BP 124/70
[2020-04-10] MEDS: ZINC SULFATE 220 MG ( 50 ) CAPSULE PO SCH (09:46)
[2020-04-10] MEDS: ASCORBIC ACID 500 MG TABLET PO SCH (09:46)
[2020-04-10] MEDS: ASPIRIN 325MG EC TABLET PO SCH (09:46)
[2020-04-10] MEDS: FAMOTIDINE 20MG TABLET PO SCH (09:46)
[2020-04-10] MEDS: SODIUM CHLORIDE 0.9% 1,000 ML IV SCH (09:47)
== END 2020-04-10 11:00 | disposition home or self-care (01) | DRG 720 ==
LOC: ER 06:02 → 7WST 10:21 → EDBEDREQ 10:36 → EDBEDREQSVC 10:36 → ENRESERV 14:43 → 8WST 21:41
PROVIDERS: ADMIT Internal Medicine; ATTEND Internal Medicine
DX: A41.59 Other Gram-negative sepsis (principal); R65.20 Severe sepsis without septic shock; N39.0 Urinary tract infection, site not specified; D68.9 Coagulation defect, unspecified; E11.9 Type 2 diabetes mellitus without complications; E43 Unspecified severe protein-calorie malnutrition; J96.01 Acute respiratory failure with hypoxia; D69.6 Thrombocytopenia, unspecified; B19.20 Unspecified viral hepatitis C without hepatic coma; F32.9 Major depressive disorder, single episode, unspecified; J44.1 Chronic obstructive pulmonary disease with (acute) exacerbation; I10 Essential (primary) hypertension; G40.909 Epilepsy, unspecified, not intractable, without status epilepticus; K74.60 Unspecified cirrhosis of liver; J30.9 Allergic rhinitis, unspecified; F10.10 Alcohol abuse, uncomplicated; Y90.9 Presence of alcohol in blood, level not specified; Z20.828 Contact with and (suspected) exposure to other viral communicable diseases; Z68.26 Body mass index [BMI] 26.0-26.9, adult; Z79.2 Long term (current) use of antibiotics; Z79.899 Other long term (current) drug therapy; Z90.49 Acquired absence of other specified parts of digestive tract; Z87.891 Personal history of nicotine dependence; Z79.4 Long term (current) use of insulin
CPT/HCPCS: 36415; 36600; 71045; 80053; 80305; 81003; 82375; 82550; 82553; 82607; 82728; 82746; 82805; 82962; 83036; 83540; 83550; 83605; 83615; 84145; 84484; 85025; 85379; 85384; 86140; 87077; 87186; 93005; 93970; 94640; 97162; 97166; 99291; J0696; J1815; J1885; J1956; J2405; J2543; J2920; J3370; J3430; J7030; J7512; U0003-CS